=== PATIENT | male | born 1950 | race Caucasian/White ===

== ENCOUNTER 2018-03-21 16:07 | Inpatient (IN) | payer MEDICARE ==
[2018-03-21 16:55] LABS: ADD MAN DIFF? NO
[2018-03-21] MEDS: FUROSEMIDE 40 MG INJ IV (16:55)
[2018-03-21 16:57] LABS: BASOPHILS % 0.7 % (0.0-2.0); EOSINOPHILS # 0.3 10^3/ul (0.0-0.5); EOSINOPHILS % 4.3 % (0.0-7.0); HEMATOCRIT 48.5 % (42.0-52.0); LYMPHOCYTES # 2.5 10^3/ul (0.8-2.9); LYMPHOCYTES % 42.9 % (15.0-51.0); MEAN CORPUSCULAR HEMOGLOBIN 23.8 pg (29.0-33.0); MEAN CORPUSCULAR HGB CONC 30.9 g/dl (32.0-37.0); MONOCYTE # 0.5 10^3/ul (0.3-0.9); MONOCYTES % 8.8 % (0.0-11.0); NEUTROPHIL # 2.5 10^3/ul (1.6-7.5); NEUTROPHILS % 43.1 % (39.0-77.0); PLATELET COUNT 217 10^3/UL (140-415); RED CELL DISTRIBUTION WIDTH 17.6 % (11.5-14.5)
[2018-03-21 16:57] LABS: WHITE BLOOD COUNT 5.9 10^3/ul (4.8-10.8)
[2018-03-21 17:15] LABS: ALANINE AMINOTRANSFERASE 69 IU/L (13-69); ALBUMIN 3.6 g/dl (3.3-4.9); ALBUMIN/GLOBULIN RATIO 0.92; ALKALINE PHOSPHATASE 105 IU/L (42-121); ANION GAP 18 (8-16); ASPARTATE AMINO TRANSFERASE 56 IU/L (15-46); BILIRUBIN,INDIRECT 0.6 mg/dl (0-1.1); BILIRUBIN,TOTAL 0.6 mg/dl (0.2-1.3); BLOOD UREA NITROGEN 23 mg/dl (7-20); CALCIUM 9.1 mg/dl (8.4-10.2); CARBON DIOXIDE 23 mmol/L (21-31); CHLORIDE 106 mmol/L (97-110); CREATININE 0.97 mg/dl (0.61-1.24); GLUCOSE 105 mg/dl (70-220); POTASSIUM 5.3 mmol/L (3.5-5.1); SODIUM 142 mmol/L (135-144); TOTAL PROTEIN 7.5 g/dl (6.1-8.1)
[2018-03-21 17:26] LABS: B-TYPE NATRIURETIC PEPTIDE 10800 PG/ML (0-125); TROPONIN-I 0.032 ng/ml (0.000-0.120)
[2018-03-21] MEDS: CEFTRIAXONE 1 GM/50 ML (PMX) 50 ML IVPB (18:11)
[2018-03-21] MEDS: AZITHROMYCIN 500MG/NS (PMX) 250 ML IV (19:00)
[2018-03-21] MEDS ORDERED: ONDANSETRON 4 MG INJ IV (19:30)
[2018-03-21] MEDS ORDERED: ACETAMINOPHEN 325 MG TAB PO (19:30)
[2018-03-21] MEDS ORDERED: ONDANSETRON 4 MG TAB PO (20:30)
[2018-03-21] MEDS ORDERED: NACL 0.9% 3 ML SYG IV (20:30)
[2018-03-22] MEDS: FUROSEMIDE 20 MG INJ IV (05:57)
[2018-03-22 07:54] LABS: ADD MAN DIFF? NO
[2018-03-22 08:00] LABS: WHITE BLOOD COUNT 5.8 10^3/ul (4.8-10.8)
[2018-03-22 08:00] LABS: BASOPHILS % 0.5 % (0.0-2.0); EOSINOPHILS # 0.3 10^3/ul (0.0-0.5); EOSINOPHILS % 5.8 % (0.0-7.0); HEMATOCRIT 46.1 % (42.0-52.0); HEMOGLOBIN 14.3 g/dl (14.0-18.0); LYMPHOCYTES # 2.5 10^3/ul (0.8-2.9); LYMPHOCYTES % 42.2 % (15.0-51.0); MEAN CORPUSCULAR HEMOGLOBIN 23.9 pg (29.0-33.0); MEAN PLATELET VOLUME 11.2 fl (7.4-10.4); MONOCYTE # 0.5 10^3/ul (0.3-0.9); MONOCYTES % 7.7 % (0.0-11.0); NEUTROPHIL # 2.5 10^3/ul (1.6-7.5); NEUTROPHILS % 43.6 % (39.0-77.0); PLATELET COUNT 234 10^3/UL (140-415); RED BLOOD COUNT 5.99 10^6/ul (4.70-6.10); RED CELL DISTRIBUTION WIDTH 17.5 % (11.5-14.5)
[2018-03-22 08:11] LABS: HEMOGLOBIN A1C 6.7 % (0-5.9)
[2018-03-22] MEDS: LISINOPRIL 10 MG TAB PO (08:23)
[2018-03-22 09:25] LABS: ALANINE AMINOTRANSFERASE 71 IU/L (13-69); ALBUMIN 3.3 g/dl (3.3-4.9); ALBUMIN/GLOBULIN RATIO 0.94; ALKALINE PHOSPHATASE 110 IU/L (42-121); ANION GAP 14 (8-16); ASPARTATE AMINO TRANSFERASE 68 IU/L (15-46); BILIRUBIN,INDIRECT 0.6 mg/dl (0-1.1); BILIRUBIN,TOTAL 0.6 mg/dl (0.2-1.3); BLOOD UREA NITROGEN 25 mg/dl (7-20); CARBON DIOXIDE 31 mmol/L (21-31); CHLORIDE 102 mmol/L (97-110); CHOL/HDL RATIO 4.8 RATIO; CHOLESTEROL 117 mg/dl (100-200); CREATININE 1.15 mg/dl (0.61-1.24); GLUCOSE 85 mg/dl (70-220); HDL CHOLESTEROL 24 mg/dl (30-78); LDL CHOLESTEROL,CALCULATED 76 mg/dl; MAGNESIUM 1.8 mg/dl (1.7-2.5); POTASSIUM 4.4 mmol/L (3.5-5.1); SODIUM 143 mmol/L (135-144); TOTAL PROTEIN 6.8 g/dl (6.1-8.1); TRIGLYCERIDES 83 mg/dl (0-149)
[2018-03-22] MEDS: FUROSEMIDE 40 MG INJ IV (17:56)
[2018-03-22] MEDS: ATORVASTATIN 10 MG TAB PO (20:48)
[2018-03-23] MEDS: FUROSEMIDE 40 MG INJ IV ×2 (05:56→17:10)
[2018-03-23] MEDS: LISINOPRIL 10 MG TAB PO (07:44)
[2018-03-23 07:59] LABS: ALANINE AMINOTRANSFERASE 63 IU/L (13-69); ALBUMIN 3.4 g/dl (3.3-4.9); ALBUMIN/GLOBULIN RATIO 0.89; ALKALINE PHOSPHATASE 112 IU/L (42-121); ANION GAP 16 (8-16); ASPARTATE AMINO TRANSFERASE 58 IU/L (15-46); BLOOD UREA NITROGEN 26 mg/dl (7-20); CARBON DIOXIDE 31 mmol/L (21-31); CHLORIDE 98 mmol/L (97-110); CREATININE 1.05 mg/dl (0.61-1.24); GLUCOSE 75 mg/dl (70-220); MAGNESIUM 1.8 mg/dl (1.7-2.5); PHOSPHORUS 4.3 mg/dl (2.5-4.9); POTASSIUM 3.8 mmol/L (3.5-5.1); SODIUM 141 mmol/L (135-144); TOTAL PROTEIN 7.2 g/dl (6.1-8.1)
[2018-03-23] MEDS: ATORVASTATIN 10 MG TAB PO (21:31)
[2018-03-24] MEDS: FUROSEMIDE 40 MG INJ IV ×2 (06:14→17:27)
[2018-03-24 06:26] LABS: ANION GAP 11 (8-16); BLOOD UREA NITROGEN 23 mg/dl (7-20); CALCIUM 8.7 mg/dl (8.4-10.2); CARBON DIOXIDE 32 mmol/L (21-31); CHLORIDE 102 mmol/L (97-110); GLUCOSE 79 mg/dl (70-220); MAGNESIUM 1.9 mg/dl (1.7-2.5); PHOSPHORUS 4.1 mg/dl (2.5-4.9); POTASSIUM 3.5 mmol/L (3.5-5.1); SODIUM 141 mmol/L (135-144)
[2018-03-24] MEDS: LISINOPRIL 10 MG TAB PO (08:51)
[2018-03-24] MEDS: ACETAMINOPHEN 325 MG TAB PO ×2 (08:51→16:38)
[2018-03-24] MEDS: ASPIRIN 81 MG TAB PO (11:02)
[2018-03-24] MEDS: ATORVASTATIN 10 MG TAB PO (20:46)
[2018-03-25] MEDS: ACETAMINOPHEN 325 MG TAB PO ×2 (00:28→08:42)
[2018-03-25] MEDS: FUROSEMIDE 40 MG INJ IV (06:02)
[2018-03-25] MEDS: ASPIRIN 81 MG TAB PO (08:42)
[2018-03-25] MEDS: LISINOPRIL 10 MG TAB PO (08:42)
== END 2018-03-25 13:48 | disposition home or self-care (01) | DRG 293 ==
LOC: E/R 16:07 → PP2 03-23 19:00 → MS4 19:16
DX: I11.0 Hypertensive heart disease with heart failure (principal); I50.23 Acute on chronic systolic (congestive) heart failure; E78.5 Hyperlipidemia, unspecified; R73.03 Prediabetes; E66.9 Obesity, unspecified; Z71.3 Dietary counseling and surveillance; Z68.31 Body mass index [BMI] 31.0-31.9, adult; Z87.891 Personal history of nicotine dependence; Z79.82 Long term (current) use of aspirin
CPT/HCPCS: 36415; 71045; 80048; 80053; 80061; 83036; 83735; 83880; 84100; 84443; 84484; 85025; 87040; 93005; 93306; 96374; 96375; 99285-25

== ENCOUNTER 2018-11-12 15:12 | Inpatient (IN) | payer MEDICARE ==
[2018-11-12 16:00] LABS: ADD MAN DIFF? NO
[2018-11-12 16:05] LABS: BASOPHILS % 0.5 % (0.0-2.0); EOSINOPHILS # 0.2 10^3/ul (0.0-0.5); EOSINOPHILS % 2.9 % (0.0-7.0); HEMATOCRIT 41.9 % (42.0-52.0); HEMOGLOBIN 13.2 g/dl (14.0-18.0); LYMPHOCYTES # 1.4 10^3/ul (0.8-2.9); LYMPHOCYTES % 24.5 % (15.0-51.0); MEAN CORPUSCULAR HEMOGLOBIN 25.9 pg (29.0-33.0); MEAN CORPUSCULAR HGB CONC 31.5 g/dl (32.0-37.0); MEAN CORPUSCULAR VOLUME 82.2 fl (82.0-101.0); MEAN PLATELET VOLUME 10.4 fl (7.4-10.4); MONOCYTE # 0.5 10^3/ul (0.3-0.9); MONOCYTES % 8.3 % (0.0-11.0); NEUTROPHIL # 3.5 10^3/ul (1.6-7.5); NEUTROPHILS % 63.6 % (39.0-77.0); PLATELET COUNT 255 10^3/UL (140-415); RED CELL DISTRIBUTION WIDTH 14.5 % (11.5-14.5)
[2018-11-12 16:05] LABS: WHITE BLOOD COUNT 5.6 10^3/ul (4.8-10.8)
[2018-11-12] MEDS: FUROSEMIDE 40 MG INJ IV ×2 (16:16→22:16)
[2018-11-12 16:24] LABS: INR 1.09; PROTIME 14.2 Sec (11.9-14.9); PT RATIO 1.1
[2018-11-12 16:25] LABS: PARTIAL THROMBOPLASTIN TIME 30.1 Sec (23.0-35.0)
[2018-11-12 16:31] LABS: ALANINE AMINOTRANSFERASE 222 IU/L (13-69); ALBUMIN 3.8 g/dl (3.3-4.9); ALBUMIN/GLOBULIN RATIO 1.26; ALKALINE PHOSPHATASE 101 IU/L (42-121); ANION GAP 11 (5-13); ASPARTATE AMINO TRANSFERASE 87 IU/L (15-46); BILIRUBIN,INDIRECT 0.7 mg/dl (0-1.1); BILIRUBIN,TOTAL 0.7 mg/dl (0.2-1.3); BLOOD UREA NITROGEN 25 mg/dl (7-20); CARBON DIOXIDE 27 mmol/L (21-31); CHLORIDE 100 mmol/L (97-110); CREATININE 1.03 mg/dl (0.61-1.24); Estimated GFR > 60 mL/min (>60); GLUCOSE 116 mg/dl (70-220); MAGNESIUM 1.7 mg/dl (1.7-2.5); POTASSIUM 4.2 mmol/L (3.5-5.1); SODIUM 138 mmol/L (135-144); TOTAL PROTEIN 6.8 g/dl (6.1-8.1)
[2018-11-12] MEDS: DIGOXIN 500 MCG INJ IV (16:32)
[2018-11-12 16:42] LABS: B-TYPE NATRIURETIC PEPTIDE 2760 PG/ML (0-125); TROPONIN-I 0.057 ng/ml (0.000-0.120)
[2018-11-12] MEDS: METOPROLOL 5 MG INJ IV (17:49)
[2018-11-12] MEDS: MAGNESIUM SULFATE 1 GM/D5W 100 ML IVPB (18:06)
[2018-11-12] MEDS: SOD CHLORIDE 0.9% 100 ML (18:07)
[2018-11-12] MEDS: IODIXANOL LOCM 100 ML BTL (18:08)
[2018-11-12] MEDS ORDERED: ACETAMINOPHEN 325 MG TAB PO (19:00)
[2018-11-12] MEDS ORDERED: ONDANSETRON 4 MG INJ IV ×2 (19:00→22:00)
[2018-11-12] MEDS ORDERED: IPRATROPIUM (NEB) 0.5 MG/2.5 ML AMP NEB (22:00)
[2018-11-12] MEDS ORDERED: NACL 0.9% 3 ML SYG IV (22:00)
[2018-11-12] MEDS: ATORVASTATIN 10 MG TAB PO (22:16)
[2018-11-12] MEDS: HEPARIN 5,000 UNIT/1 ML VIAL SC (22:24)
[2018-11-13 05:46] LABS: ADD MAN DIFF? NO
[2018-11-13 05:49] LABS: WHITE BLOOD COUNT 4.9 10^3/ul (4.8-10.8)
[2018-11-13 05:49] LABS: BASOPHILS % 0.4 % (0.0-2.0); EOSINOPHILS # 0.3 10^3/ul (0.0-0.5); EOSINOPHILS % 6.7 % (0.0-7.0); HEMATOCRIT 39.6 % (42.0-52.0); HEMOGLOBIN 12.6 g/dl (14.0-18.0); LYMPHOCYTES # 1.7 10^3/ul (0.8-2.9); LYMPHOCYTES % 35.6 % (15.0-51.0); MEAN CORPUSCULAR HEMOGLOBIN 25.8 pg (29.0-33.0); MEAN CORPUSCULAR HGB CONC 31.8 g/dl (32.0-37.0); MEAN PLATELET VOLUME 10.8 fl (7.4-10.4); MONOCYTE # 0.5 10^3/ul (0.3-0.9); MONOCYTES % 10.6 % (0.0-11.0); NEUTROPHIL # 2.3 10^3/ul (1.6-7.5); NEUTROPHILS % 46.5 % (39.0-77.0); PLATELET COUNT 224 10^3/UL (140-415); RED BLOOD COUNT 4.89 10^6/ul (4.70-6.10); RED CELL DISTRIBUTION WIDTH 14.6 % (11.5-14.5)
[2018-11-13 06:17] LABS: ALANINE AMINOTRANSFERASE 174 IU/L (13-69); ALBUMIN 3.2 g/dl (3.3-4.9); ALKALINE PHOSPHATASE 83 IU/L (42-121); ANION GAP 9 (5-13); ASPARTATE AMINO TRANSFERASE 68 IU/L (15-46); BILIRUBIN,INDIRECT 0.6 mg/dl (0-1.1); BILIRUBIN,TOTAL 0.6 mg/dl (0.2-1.3); BLOOD UREA NITROGEN 23 mg/dl (7-20); CALCIUM 8.5 mg/dl (8.4-10.2); CARBON DIOXIDE 30 mmol/L (21-31); CHLORIDE 99 mmol/L (97-110); CHOL/HDL RATIO 2.9 RATIO; CHOLESTEROL 74 mg/dl (100-200); CREATINE KINASE 271 IU/L (23-200); CREATININE 0.93 mg/dl (0.61-1.24); Estimated GFR > 60 mL/min (>60); GLUCOSE 79 mg/dl (70-220); HDL CHOLESTEROL 25 mg/dl (30-78); LDL CHOLESTEROL,CALCULATED 38 mg/dl; MAGNESIUM 1.9 mg/dl (1.7-2.5); POTASSIUM 3.3 mmol/L (3.5-5.1); SODIUM 138 mmol/L (135-144); TOTAL PROTEIN 6.1 g/dl (6.1-8.1); TRIGLYCERIDES 55 mg/dl (0-149)
[2018-11-13 06:23] LABS: CK INDEX 1.3
[2018-11-13 06:33] LABS: CK-MB 3.65 ng/ml (0.0-2.4)
[2018-11-13 07:09] LABS: HEMOGLOBIN A1C 6.2 % (0-5.9)
[2018-11-13] MEDS: FUROSEMIDE 40 MG INJ IV ×2 (09:25→20:40)
[2018-11-13] MEDS: ASPIRIN (EC) 81 MG TAB PO (09:25)
[2018-11-13] MEDS: METOPROLOL (XL) 50 MG TAB PO (09:25)
[2018-11-13] MEDS: HEPARIN 5,000 UNIT/1 ML VIAL SC (09:39)
[2018-11-13] MEDS ORDERED: INFLUENZA VIRUS VACCINE 0.5 ML (DISPENSING) IM* (10:00)
[2018-11-13] MEDS: POTASSIUM CHLORIDE (SR) 20 MEQ TAB PO (15:44)
[2018-11-13] MEDS: SPIRONOLACTONE 25 MG TAB PO (18:11)
[2018-11-13] MEDS: DIGOXIN 500 MCG INJ IV (18:11)
[2018-11-13] MEDS: RIVAROXABAN 20 MG TABLET PO (18:51)
[2018-11-14] MEDS: ACETAMINOPHEN 325 MG TAB PO ×2 (00:06→19:26)
[2018-11-14 05:39] LABS: ADD MAN DIFF? NO
[2018-11-14 05:51] LABS: BASOPHILS % 0.7 % (0.0-2.0); EOSINOPHILS # 0.3 10^3/ul (0.0-0.5); EOSINOPHILS % 4.9 % (0.0-7.0); HEMATOCRIT 43.5 % (42.0-52.0); LYMPHOCYTES # 2.4 10^3/ul (0.8-2.9); LYMPHOCYTES % 41.4 % (15.0-51.0); MEAN CORPUSCULAR HEMOGLOBIN 25.9 pg (29.0-33.0); MEAN CORPUSCULAR HGB CONC 32.2 g/dl (32.0-37.0); MEAN CORPUSCULAR VOLUME 80.6 fl (82.0-101.0); MEAN PLATELET VOLUME 10.4 fl (7.4-10.4); MONOCYTE # 0.6 10^3/ul (0.3-0.9); MONOCYTES % 9.9 % (0.0-11.0); NEUTROPHIL # 2.5 10^3/ul (1.6-7.5); NEUTROPHILS % 43.1 % (39.0-77.0); PLATELET COUNT 233 10^3/UL (140-415); RED CELL DISTRIBUTION WIDTH 14.6 % (11.5-14.5)
[2018-11-14 05:51] LABS: WHITE BLOOD COUNT 5.7 10^3/ul (4.8-10.8)
[2018-11-14 06:27] LABS: ALANINE AMINOTRANSFERASE 144 IU/L (13-69); ALBUMIN 3.1 g/dl (3.3-4.9); ALKALINE PHOSPHATASE 86 IU/L (42-121); ASPARTATE AMINO TRANSFERASE 61 IU/L (15-46); BILIRUBIN,INDIRECT 0.6 mg/dl (0-1.1); BILIRUBIN,TOTAL 0.6 mg/dl (0.2-1.3); CREATINE KINASE 138 IU/L (23-200); TOTAL PROTEIN 6.1 g/dl (6.1-8.1)
[2018-11-14 06:31] LABS: ALANINE AMINOTRANSFERASE 142 IU/L (13-69); ALBUMIN 3.2 g/dl (3.3-4.9); ALBUMIN/GLOBULIN RATIO 1.06; ALKALINE PHOSPHATASE 88 IU/L (42-121); ANION GAP 7 (5-13); ASPARTATE AMINO TRANSFERASE 61 IU/L (15-46); BILIRUBIN,INDIRECT 0.6 mg/dl (0-1.1); BILIRUBIN,TOTAL 0.6 mg/dl (0.2-1.3); BLOOD UREA NITROGEN 24 mg/dl (7-20); CALCIUM 8.8 mg/dl (8.4-10.2); CARBON DIOXIDE 30 mmol/L (21-31); CHLORIDE 102 mmol/L (97-110); CREATININE 0.98 mg/dl (0.61-1.24); Estimated GFR > 60 mL/min (>60); GLUCOSE 91 mg/dl (70-220); POTASSIUM 3.8 mmol/L (3.5-5.1); SODIUM 139 mmol/L (135-144); TOTAL PROTEIN 6.2 g/dl (6.1-8.1)
[2018-11-14 06:39] LABS: CK INDEX 0.9; CK-MB 1.18 ng/ml (0.0-2.4); TROPONIN-I 0.063 ng/ml (0.000-0.120)
[2018-11-14 07:10] LABS: FREE T4 (FREE THYROXINE) 1.11 ng/dl (0.78-2.44)
[2018-11-14 07:20] LABS: B-TYPE NATRIURETIC PEPTIDE 3840 PG/ML (0-125)
[2018-11-14 07:22] LABS: MAGNESIUM 1.9 mg/dl (1.7-2.5)
[2018-11-14 07:22] LABS: PHOSPHORUS 2.9 mg/dl (2.5-4.9)
[2018-11-14 07:42] LABS: THYROID STIMULATING HORMONE 0.599 MIU/L (0.465-4.680)
[2018-11-14] MEDS: FUROSEMIDE 40 MG INJ IV ×2 (08:31→20:58)
[2018-11-14] MEDS: METOPROLOL (XL) 50 MG TAB PO (08:32)
[2018-11-14] MEDS: SPIRONOLACTONE 25 MG TAB PO (08:32)
[2018-11-14 11:01] LABS: HAAIG REFLEX REFLEX FILED
[2018-11-14 12:05] LABS: HEPATITIS B SURFACE ANTIGEN NEGATIVE (NEGATIVE)
[2018-11-14 12:22] LABS: HEPATITIS B CORE ANTIBODY NEGATIVE (NEGATIVE); HEPATITIS C VIRAL ANTIBODY NEGATIVE (NEGATIVE)
[2018-11-14] MEDS: DIGOXIN 0.125 MG TAB PO (13:22)
[2018-11-14] MEDS: RIVAROXABAN 20 MG TABLET PO (17:45)
[2018-11-15] MEDS: morphine 4 MG/ML VIAL IV ×2 (01:02→22:52)
[2018-11-15 01:28] LABS: ANION GAP 11 (5-13); BLOOD UREA NITROGEN 25 mg/dl (7-20); CARBON DIOXIDE 28 mmol/L (21-31); CHLORIDE 102 mmol/L (97-110); CREATININE 1.08 mg/dl (0.61-1.24); Estimated GFR > 60 mL/min (>60); GLUCOSE 100 mg/dl (70-220); POTASSIUM 3.9 mmol/L (3.5-5.1); SODIUM 141 mmol/L (135-144)
[2018-11-15] MEDS: FUROSEMIDE 40 MG TAB PO ×2 (05:55→17:46)
[2018-11-15 06:05] LABS: ADD MAN DIFF? NO
[2018-11-15 06:10] LABS: BASOPHILS % 0.6 % (0.0-2.0); EOSINOPHILS # 0.3 10^3/ul (0.0-0.5); EOSINOPHILS % 4.5 % (0.0-7.0); HEMATOCRIT 45.4 % (42.0-52.0); HEMOGLOBIN 14.6 g/dl (14.0-18.0); LYMPHOCYTES # 2.1 10^3/ul (0.8-2.9); LYMPHOCYTES % 34.2 % (15.0-51.0); MEAN CORPUSCULAR HEMOGLOBIN 25.8 pg (29.0-33.0); MEAN CORPUSCULAR HGB CONC 32.2 g/dl (32.0-37.0); MEAN CORPUSCULAR VOLUME 80.4 fl (82.0-101.0); MEAN PLATELET VOLUME 10.7 fl (7.4-10.4); MONOCYTE # 0.7 10^3/ul (0.3-0.9); MONOCYTES % 10.5 % (0.0-11.0); NEUTROPHIL # 3.1 10^3/ul (1.6-7.5); PLATELET COUNT 261 10^3/UL (140-415); RED BLOOD COUNT 5.65 10^6/ul (4.70-6.10); RED CELL DISTRIBUTION WIDTH 14.6 % (11.5-14.5)
[2018-11-15 06:10] LABS: WHITE BLOOD COUNT 6.2 10^3/ul (4.8-10.8)
[2018-11-15 06:39] LABS: IRON 56 ug/dl (35-150)
[2018-11-15 06:48] LABS: % IRON SATURATION 15 % SAT (22-52); ALANINE AMINOTRANSFERASE 134 IU/L (13-69); ALBUMIN 3.3 g/dl (3.3-4.9); ALBUMIN/GLOBULIN RATIO 1.06; ALKALINE PHOSPHATASE 75 IU/L (42-121); ANION GAP 13 (5-13); ASPARTATE AMINO TRANSFERASE 68 IU/L (15-46); BILIRUBIN,INDIRECT 0.6 mg/dl (0-1.1); BILIRUBIN,TOTAL 0.6 mg/dl (0.2-1.3); BLOOD UREA NITROGEN 22 mg/dl (7-20); CALCIUM 8.8 mg/dl (8.4-10.2); CARBON DIOXIDE 28 mmol/L (21-31); CHLORIDE 100 mmol/L (97-110); CREATININE 0.96 mg/dl (0.61-1.24); Estimated GFR > 60 mL/min (>60); GLUCOSE 89 mg/dl (70-220); POTASSIUM 3.9 mmol/L (3.5-5.1); SODIUM 141 mmol/L (135-144); TOTAL IRON BINDING CAPACITY 378 ug/dl (241-421); TOTAL PROTEIN 6.4 g/dl (6.1-8.1)
[2018-11-15 07:49] LABS: PHOSPHORUS 3.2 mg/dl (2.5-4.9)
[2018-11-15 07:49] LABS: MAGNESIUM 1.9 mg/dl (1.7-2.5)
[2018-11-15] MEDS: SPIRONOLACTONE 25 MG TAB PO (08:17)
[2018-11-15] MEDS: METOPROLOL (XL) 50 MG TAB PO (08:17)
[2018-11-15 08:21] LABS: FERRITIN 25.4 ng/ml (11.1-264.0)
[2018-11-15] MEDS: DIGOXIN 0.125 MG TAB PO (14:48)
[2018-11-15] MEDS: RIVAROXABAN 20 MG TABLET PO (18:49)
[2018-11-15] MEDS: ACETAMINOPHEN 325 MG TAB PO (21:38)
[2018-11-15] MEDS ORDERED: morphine SULFATE/PF (2 MG/2 ML) SYG IV (23:00)
[2018-11-16] MEDS: FUROSEMIDE 40 MG TAB PO ×2 (05:37→17:34)
[2018-11-16 07:37] LABS: ALANINE AMINOTRANSFERASE 140 IU/L (13-69); ALBUMIN 3.4 g/dl (3.3-4.9); ALBUMIN/GLOBULIN RATIO 1.09; ALKALINE PHOSPHATASE 84 IU/L (42-121); ANION GAP 13 (5-13); ASPARTATE AMINO TRANSFERASE 91 IU/L (15-46); BILIRUBIN,INDIRECT 0.5 mg/dl (0-1.1); BILIRUBIN,TOTAL 0.5 mg/dl (0.2-1.3); BLOOD UREA NITROGEN 23 mg/dl (7-20); CALCIUM 9.2 mg/dl (8.4-10.2); CARBON DIOXIDE 25 mmol/L (21-31); CHLORIDE 101 mmol/L (97-110); CREATININE 0.87 mg/dl (0.61-1.24); Estimated GFR > 60 mL/min (>60); GLUCOSE 79 mg/dl (70-220); SODIUM 139 mmol/L (135-144); TOTAL PROTEIN 6.5 g/dl (6.1-8.1)
[2018-11-16 07:41] LABS: PHOSPHORUS 3.9 mg/dl (2.5-4.9)
[2018-11-16] MEDS: METOPROLOL (XL) 50 MG TAB PO (09:31)
[2018-11-16] MEDS: SPIRONOLACTONE 25 MG TAB PO (09:31)
[2018-11-16 10:06] LABS: ALPHA 1 ANTITRYPSIN 190 mg/dL (83-199); CERULOPLASMIN 32 mg/dL (18-36)
[2018-11-16 12:26] LABS: SMOOTH MUSCLE AB SCREEN POSITIVE (NEGATIVE)
[2018-11-16 13:56] LABS: ANA SCREEN NEGATIVE (NEGATIVE)
[2018-11-16] MEDS: DIGOXIN 0.125 MG TAB PO (14:08)
[2018-11-16] MEDS: RIVAROXABAN 20 MG TABLET PO (17:34)
[2018-11-16] MEDS: morphine 4 MG/ML VIAL IV (21:33)
[2018-11-17] MEDS: FUROSEMIDE 40 MG TAB PO (05:51)
[2018-11-17] MEDS: SPIRONOLACTONE 25 MG TAB PO (08:40)
[2018-11-17] MEDS: METOPROLOL (XL) 50 MG TAB PO (08:41)
[2018-11-17] MEDS: DIGOXIN 0.125 MG TAB PO (13:09)
== END 2018-11-17 14:30 | disposition home or self-care (01) | DRG 308 ==
LOC: E/R 15:12 → 6WM 11-14 15:29
DX: I48.0 Paroxysmal atrial fibrillation (principal); I50.23 Acute on chronic systolic (congestive) heart failure; I42.9 Cardiomyopathy, unspecified; I11.0 Hypertensive heart disease with heart failure; E66.9 Obesity, unspecified; Z68.33 Body mass index [BMI] 33.0-33.9, adult; I27.20 Pulmonary hypertension, unspecified; E78.5 Hyperlipidemia, unspecified; R73.03 Prediabetes; E80.6 Other disorders of bilirubin metabolism; Z87.891 Personal history of nicotine dependence; J44.9 Chronic obstructive pulmonary disease, unspecified
CPT/HCPCS: 36415; 71045; 76705; 80048; 80053; 80061; 80076; 82103; 82390; 82550; 82553; 82728; 83036; 83540; 83735; 83880; 84100; 84439; 84443; 84484; 85025; 85610; 85730; 86038; 86255; 86704; 86709; 86803; 87340; 90686; 93005; 93306; 96374; 96375; 99291-25